=== PATIENT | male | born 1925 | race Caucasian/White ===

== ENCOUNTER 2016-06-07 21:24 | Inpatient (IN) | payer MEDICARE, BC ==
--- NOTE | 2016-06-07 21:39 | EDM.PDOC ---
ED HPI GENERAL MEDICAL PROBLEM - General Chief Complaint: General Stated Complaint: RETAINING FLUID, TROUBLE BREATHING Time Seen by Provider: 06/07/16 21:34 Source of Information: Reports: Patient History Limitations: Reports: No limitations - History of Present Illness INITIAL COMMENTS - FREE TEXT/NARRATIVE: c/o unknown time period of leg swelling hard to breath. - Related Data Allergies Allergy/AdvReac Type Severity Reaction Status Date / Time No Known Allergies Allergy Verified 06/07/16 21:32 Home Meds: Home Meds Aspirin 81 mg PO DAILY 01/11/16 [History] Cyanocobalamin (Vitamin B-12) [Vitamin B-12] 100 mcg PO DAILY 01/11/16 [History] Digoxin 125 mcg PO DAILY 01/11/16 [History] Furosemide [Lasix] 40 mg PO DAILY 01/11/16 [History] Insulin Aspart [NovoLOG] 26 unit SQ TID 01/11/16 [History] Insulin Glarg,Human.Rec.Analog [LantUS Solostar] 75 unit SUBCUT BEDTIME [History] Isosorbide Mononitrate [Imdur] 30 mg PO DAILY 01/11/16 [History] Metolazone 2.5 mg PO ASDIRECTED 01/11/16 [History] Metoprolol Succinate [Toprol XL] 50 mg PO BID 01/11/16 [History] Potassium Chloride [Klor-Con M20] 20 meq PO BID 01/11/16 [History] Spironolactone [Aldactone] 25 mg PO DAILY 01/11/16 [History] Warfarin Sodium [Jantoven] 2.5 mg PO DAILY 01/11/16 [History] Past Medical History HEENT History: Reports: Hard of hearing, Impaired vision Other HEENT History: wears glasses and uses hearing aides Cardiovascular History: Reports: Afib, CAD, Heart Failure, Hypertension, Stents Other Cardiovascular History: family states ECHO "was not real good" 9 to 10 years ago when done when stents were placed. Respiratory History: Reports: SOB Gastrointestinal History: Reports: Chronic constipation Genitourinary History: Reports: Prostate disorder, Other (see below) Other Genitourinary History: Had surgery on prostrate but doesn't know exactly what was done. States has trouble going sometimes or not empting and then having to go right away. States sometimes it goes good. Musculoskeletal History: Reports: Other (see below) Other Musculoskeletal History: peripheral artery disease Endocrine/Metabolic History: Reports: Diabetes, type II - Past Surgical History Cardiovascular Surgical History: Reports: Coronary artery stent GI Surgical History: Reports: Appendectomy, Cholecystectomy Social & Family History - Tobacco Use Smoking Status *Q: Former Smoker ED ROS GENERAL - Review of Systems Review Of Systems: ROS reveals no pertinent complaints other than HPI. ED EXAM, GENERAL - Physical Exam Exam: See Below Exam Limited By: No limitations General Appearance: alert, WD/WN Ears: hearing grossly normal Throat/Mouth: Normal voice, No airway compromise Head: atraumatic Neck: non-tender, full range of motion Respiratory/Chest: no respiratory distress, no accessory muscle use, rhonchi. No: decreased breath sounds, retractions, splinting Cardiovascular: regular rate, rhythm GI/Abdominal: soft, non tender Extremities: pedal edema. No: other (3-4+ bilaterally) Neurological: alert, oriented, normal cognition, normal gait, no motor/sensory deficits Psychiatric: normal affect, normal mood Skin Exam: Warm, Dry Lymphatic: no adenopathy Course - Vital Signs Last Recorded V/S: Last Vital Signs Temp 35.9 C 06/07/16 21:32 Pulse 65 06/07/16 23:30 Resp 18 06/07/16 23:30 BP 103/60 06/07/16 23:30 Pulse Ox 98 06/07/16 23:30 - Orders/Labs/Meds Labs: Laboratory Tests 06/07/16 06/07/16 06/07/16 Range/Units 21:41 21:41 21:41 WBC 7.7 (5.0-10.0) 10^3/uL RBC 3.22 L (4.6-6.2) 10^6/uL Hgb 10.2 L (14.0-18.0) g/dL Hct 31.9 L (40.0-54.0) % MCV 99.1 (80-100) fL MCH 31.7 (27.0-34.0) pg MCHC 32.0 L (33.0-35.0) g/dL Plt Count 92 L (150-450) 10^3/uL Neut % (Auto) 67.7 (42.2-75.2) % Lymph % (Auto) 19.6 L (20.5-50.1) % [place] % (Auto) 11.2 H (2-8) % Eos % (Auto) 1.2 (1.0-3.0) % Baso % (Auto) 0.3 (0.0-1.0) % PT 18.3 H (9.0-12.0) SEC INR 1.8 H (0.9-1.2) D-Dimer, Quantitative (0-400) ng/mL Sodium 134 L (135-145) mmol/L Potassium 4.2 (3.6-5.0) mmol/L Chloride 94 L (101-111) mmol/L Carbon Dioxide 30.0 (21.0-31.0) mmol/L Anion Gap 14.2 BUN 59 H (7-18) mg/dL Creatinine 2.8 H (0.6-1.3) mg/dL Est Cr Clr Drug Dosing 19.63 mL/min Estimated GFR (MDRD) 21 BUN/Creatinine Ratio 21.07 Glucose 133 H (74-105) mg/dL Calcium 8.2 L (8.4-10.2) mg/dl Total Bilirubin 1.0 (0.2-1.0) mg/dL AST 34 (10-42) IU/L ALT 33 (10-60) IU/L Alkaline Phosphatase 64 (42-121) IU/L Troponin I 0.03 H* (0.00-0.02) ng/ml B-Natriuretic Peptide 219 H (0-100) pg/ml Total Protein 6.8 (6.7-8.2) g/dl Albumin 3.7 (3.2-5.5) g/dl Globulin 3.1 Albumin/Globulin Ratio 1.19 Urine Color (YELLOW) Urine Appearance (CLEAR) Urine pH (5.0-9.0) Ur Specific [place] (1.005-1.030) Urine Protein (NEGATIVE) Urine Glucose (UA) (NEGATIVE) Urine Ketones (NEGATIVE) Urine Occult Blood (NEGATIVE) Urine Nitrite (NEGATIVE) Urine Bilirubin (NEGATIVE) Urine Urobilinogen (0.2-1.0) mg/dL Ur Leukocyte Esterase (NEGATIVE) Urine RBC /HPF Urine WBC (0-5/HPF) /HPF Ur Epithelial Cells /HPF Urine Bacteria (0-FEW/HPF) /HPF Digoxin (0-2.5) ng/ml 06/07/16 06/07/16 06/07/16 Range/Units 21:41 21:41 22:59 WBC (5.0-10.0) 10^3/uL RBC (4.6-6.2) 10^6/uL Hgb (14.0-18.0) g/dL Hct (40.0-54.0) % MCV (80-100) fL MCH (27.0-34.0) pg MCHC (33.0-35.0) g/dL Plt Count (150-450) 10^3/uL Neut % (Auto) (42.2-75.2) % Lymph % (Auto) (20.5-50.1) % [place] % (Auto) (2-8) % Eos % (Auto) (1.0-3.0) % Baso % (Auto) (0.0-1.0) % PT (9.0-12.0) SEC INR (0.9-1.2) D-Dimer, Quantitative < 100 (0-400) ng/mL Sodium (135-145) mmol/L Potassium (3.6-5.0) mmol/L Chloride (101-111) mmol/L Carbon Dioxide (21.0-31.0) mmol/L Anion Gap BUN (7-18) mg/dL Creatinine (0.6-1.3) mg/dL Est Cr Clr Drug Dosing mL/min Estimated GFR (MDRD) BUN/Creatinine Ratio Glucose (74-105) mg/dL Calcium (8.4-10.2) mg/dl Total Bilirubin (0.2-1.0) mg/dL AST (10-42) IU/L ALT (10-60) IU/L Alkaline Phosphatase (42-121) IU/L Troponin I (0.00-0.02) ng/ml B-Natriuretic Peptide (0-100) pg/ml Total Protein (6.7-8.2) g/dl Albumin (3.2-5.5) g/dl Globulin Albumin/Globulin Ratio Urine Color Yellow (YELLOW) Urine Appearance Clear (CLEAR) Urine pH 6.5 (5.0-9.0) Ur Specific [place] 1.015 (1.005-1.030) Urine Protein Negative (NEGATIVE) Urine Glucose (UA) Negative (NEGATIVE) Urine Ketones Negative (NEGATIVE) Urine Occult Blood Negative (NEGATIVE) Urine Nitrite Negative (NEGATIVE) Urine Bilirubin Negative (NEGATIVE) Urine Urobilinogen 0.2 (0.2-1.0) mg/dL Ur Leukocyte Esterase Negative (NEGATIVE) Urine RBC Not seen /HPF Urine WBC Not seen (0-5/HPF) /HPF Ur Epithelial Cells Occasional /HPF Urine Bacteria Rare (0-FEW/HPF) /HPF Digoxin 1.0 (0-2.5) ng/ml - Re-Assessments/Exams Free Text/Narrative Re-Assessment/Exam: 06/07/16 23:[address] Díaz who kindly admitted Pt. Departure - Departure Time of Disposition: 23:58 Disposition: Admitted As Inpatient 68 Condition: good Clinical Impression: CHF, Congestive heart failure Forms: ED Department Discharge
--- NOTE | 2016-06-08 00:13 | PCM.HP ---
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 I have seen this pt in Renal Clinic in April, and I had a long discussion with the patient and his and daughter about dialysis. The patient does not want to have dialysis. He would like to have continued medical management. The the pt came to ED with weakness and increased fluid retention , pt has stopped taking Metolazone beacuse he was urinating too much and was tired of urinating. Onset of Symptoms: Reports: gradual - Related Data Allergies/Adverse Reactions: Allergies Allergy/AdvReac Type Severity Reaction Status Date / Time No Known Allergies Allergy Verified 06/07/16 21:32 Home Medications: Home Meds Aspirin 81 mg PO DAILY 01/11/16 [History] Cyanocobalamin (Vitamin B-12) [Vitamin B-12] 100 mcg PO DAILY 01/11/16 [History] Digoxin 125 mcg PO DAILY 01/11/16 [History] Furosemide [Lasix] 40 mg PO DAILY 01/11/16 [History] Insulin Aspart [NovoLOG] 25 unit SQ TID 01/11/16 [History] Insulin Glarg,Human.Rec.Analog [LantUS Solostar] 75 unit SUBCUT BEDTIME [History] Isosorbide Mononitrate [Imdur] 30 mg PO DAILY 01/11/16 [History] Metolazone 2.5 mg PO Q48H 01/11/16 [History] Metoprolol Succinate [Toprol XL] 50 mg PO BID 01/11/16 [History] Potassium Chloride [Klor-Con M20] 20 meq PO BID 01/11/16 [History] Spironolactone [Aldactone] 25 mg PO DAILY 01/11/16 [History] Warfarin Sodium [Jantoven] 2.5 mg PO DAILY 01/11/16 [History] Warfarin Sodium [Jantoven] 5 mg PO .06/08/16 [History] Past Medical History HEENT History: Reports: Hard of hearing, Impaired vision Other HEENT History: wears glasses and uses hearing aides Cardiovascular History: Reports: Afib, CAD, Heart Failure, Hypertension, Stents Other Cardiovascular History: family states ECHO "was not real good" 9 to 10 years ago when done when stents were placed. Respiratory History: Reports: SOB Gastrointestinal History: Reports: Chronic constipation Genitourinary History: Reports: Prostate disorder, Other (see below) Other Genitourinary History: Had surgery on prostrate but doesn't know exactly what was done. States has trouble going sometimes or not empting and then having to go right away. States sometimes it goes good. Musculoskeletal History: Reports: Other (see below) Other Musculoskeletal History: peripheral artery disease Neurological History: Reports: None Psychiatric History: Reports: None Endocrine/Metabolic History: Reports: Diabetes, type II Hematologic History: Reports: None Immunologic History: Reports: None Oncologic (Cancer) History: Reports: None Dermatologic History: Reports: None - Past Surgical History Cardiovascular Surgical History: Reports: Coronary artery stent GI Surgical History: Reports: Appendectomy, Cholecystectomy Social & Family History - Tobacco Use Smoking Status *Q: Former Smoker Used Tobacco, but Quit: Yes Month Tobacco Last Used: years - Caffeine Use Caffeine Use: Reports: Coffee, Soda - Recreational Drug Use Recreational Drug Use: No H&P Review of Systems - Review of Systems: Review Of Systems: See Below General: Reports: weakness, fatigue, weight gain. Denies: fever, chills HEENT: Denies: headaches, sinus congestion, sore throat Pulmonary: Denies: Shortness of Breath, Wheezing, Cough, Sputum Cardiovascular: Reports: dyspnea on exertion. Denies: chest pain, palpitations Gastrointestinal: Denies: Abdominal pain, Diarrhea, Nausea, Vomiting Genitourinary: Denies: dysuria, burning, urgency, flank pain Musculoskeletal: Reports: leg pain. Denies: neck pain, shoulder pain, back pain Skin: Denies: cyanosis, jaundice, bruising, pruritis, rash Psychiatric: Denies: confusion, anxiety, agitation, hallucinations Neurological: Denies: Confusion, Tingling, Tremors Hematologic/Lymphatic: Reports: no symptoms Immunologic: Reports: no symptoms Exam - Exam Exam: See Below - Vital Signs Vital Signs: Last Vital Signs Temp 35.9 C 06/07/16 21:32 Pulse 65 06/08/16 00:00 Resp 18 06/08/16 00:00 BP 101/60 06/08/16 00:00 Pulse Ox 97 06/08/16 00:00 Weight: 104.326 kg - Exam Quality Assessment: DVT prophylaxis. No: supplemental oxygen, urinary catheter General: alert, oriented, cooperative HEENT: Conjunctiva clear, EOMI, Hearing intact, Mucosa moist & pink Neck: supple. No: lymphadenopathy, thyromegaly Lungs: Clear to auscultation, Normal respiratory effort, Crackles (mild). No: Rales, Rhonchi, Wheezing Cardiovascular: irregular rhythm, systolic murmur Abdomen: normal bowel sounds, soft. No: guarding, rigidity Rectal (Males) Exam: Deferred Back Exam: normal inspection, full range of motion Extremities: normal inspection, normal pulses, edema (+2-3 pitting). No: calf tenderness Skin: warm, dry, intact Neurological: cranial nerves intact Neuro Extensive - Mental Status: alert, oriented x3, normal mood/affect, normal cognition, memory intact Neuro Extensive - Motor, Sensory, Reflexes: CN II-XII intact Psychiatric: alert, normal affect, normal mood - Patient Data Result Diagrams: 06/07/16 21:41 06/08/16 06:30 *Q Meaningful Use (ADM) - VTE *Q VTE Criteria *Q: - Stroke *Q Stroke Criteria *Q: - AMI *Q AMI Criteria *Q: - Problem List (1) Edema extremities SNOMED Code(s): 184200614 ICD Code: R60.0 - LOCALIZED EDEMA Status: Acute Current Visit: Yes (2) Weight gain Status: Acute Current Visit: Yes (3) Pulmonary hypertension SNOMED Code(s): 40025862 ICD Code: I27.2 - OTHER SECONDARY PULMONARY HYPERTENSION Status: Acute Current Visit: Yes (4) Hypertension SNOMED Code(s): 17191942 ICD Code: I10 - ESSENTIAL (PRIMARY) HYPERTENSION Status: Acute Current Visit: Yes (5) A-fib SNOMED Code(s): 60771777 ICD Code: I48.91 - UNSPECIFIED ATRIAL FIBRILLATION Status: Acute Current Visit: Yes (6) CHF, Congestive heart failure SNOMED Code(s): 26978157 ICD Code: I50.9 - HEART FAILURE, UNSPECIFIED Status: Acute Current Visit : Yes Problem List Initiated/Reviewed/Updated: Yes Assessment/Plan Comment:: This is a 89 Y/O M with chronic atrial fibrillation rate controlled on anticoagulation, coronary artery disease, diabetes type 2 which is insulin- dependent, long-standing with moderately good control, no diabetic retinopathy, dyslipidemia, hypertension, peripheral vascular disease, significant lower extremity emeda with chronic Lymphedema wrap chronic kidney disease stage IV, baseline creatinine ranging from 2.2 to 2.6 mg/dL. I had a long discussion with the patient and his and daughter in renal clinic visit on 04/2016 about dialysis and the patient does not want to have dialysis. Today he was admitted with fluid retention weight gain of 16-18 lbs as he has stopped taking Metolazone because he was urinating too many times and also has LE pain 1. Increased swelling of Lower extremity: This is likely from not taking Metolazone and possibly deterioration of Pulmonary Hyprertension -Will start him lasix 40 mg IV X q 6 hrs -Will hold home medication ( Furosemide 40 mg daily, Aldactone 25 mg daily ) and will continue Metolazone 2.5 mg daily ( give 30-40 minutes before the Furosemide dose) -Will place a Tee Catheter for I/O recording and pt comfort -Will check daily weight 2. Weakness with LE pain: This is likely from increasing girth of the Extremity with fluid retention -Will continue IV lasix and continue diuresis as BP tolerates 3. Hypertension: His BP was on the low side He was at home on Toporol XL at 100 mg daily, Imdur at 30 mg daily and aldactone at 25 mg daily -Will decrease Metoprolol to 50 mg daily and hold Imdur [ was at 30 mg daily] and continue aldactone at 25 mg daily 4. Diadetes 2 ( Insulin Dependent): he was at home on lantus 75 units at bed time and NovoLog 25 sq TID before meals 5. A-Fib: on Digoxin 125 mcg daily and will continue 6. CKD stage IV: This is likely from Hypertension and diabetes, base line 2.2- 2.8 mg/dl and the pt as well as family do not want him to have dialysis -Continue Medical Management 7. Pulmonary Hypertension: Pt had Echo in 2015 and that showed Right Ventricular Systolic Pressure 60-70 mmHg and likely it must have gotten worse now and he is pre-load dependent, it will be difficult to diurese this pt, but will be gentle on diuresis and need continued use of Lymphedema wrap. 8. DVT prophylexis: will continue Heparin 5000 units TID and robles hose 9. GI prophylaxis: Continue Protonix 40 mg daily 10. Code Status: Pt is DNR/DNI Addendum: Pt was seen again at 9 AM and now on IV lasix 40 mg IV TID and responding very well. He now has Tee catheter in place and feels comfortable. He is doing much better and made changes to his Hypertensive Medication. I have stopped Imdur and decreased Metoprolol to 25 mg daily [ was at 50 mg BID] I discussed with Family members, and Grand Son about the plan and I will see him in clinic for further adjustment of his Medication with labs
[2016-06-08] MEDS ORDERED: Acetaminophen 325 MG Tab PO PRN (00:50)
[2016-06-08] MEDS ORDERED: Docusate Sodium 100 MG Cap PO PRN (00:50)
[2016-06-08] MEDS ORDERED: Metolazone 2.5 MG Tab PO SCH (06:00)
[2016-06-08] MEDS: Pantoprazole 40 MG Tab.CR PO SCH (06:21)
[2016-06-08] MEDS ORDERED: Furosemide 40 MG/4 ML VIAL IVPUSH SCH (07:00)
[2016-06-08] MEDS ORDERED: Warfarin 5 MG Tab PO SCH (09:00)
[2016-06-08] MEDS ORDERED: Metoprolol Succinate 50 MG Tab.ER PO SCH (09:00)
[2016-06-08] MEDS ORDERED: Isosorbide Mononitrate 30 MG Tab.ER PO SCH (09:00)
[2016-06-08] MEDS: Insulin Aspart 100 Units/ML 3 ML Pen SUBCUT SCH ×3 (09:32→17:22)
[2016-06-08] MEDS: Potassium Chloride 10 MEQ Tab.ER PO SCH ×2 (09:34→20:43)
[2016-06-08] MEDS: Digoxin 125 MCG Tab PO SCH (09:35)
[2016-06-08] MEDS: Spironolactone 25 MG Tab PO SCH (09:35)
[2016-06-08] MEDS: Aspirin 81 MG Tab.EC PO SCH (09:35)
[2016-06-08] MEDS: Furosemide 40 MG/4 ML VIAL IVPUSH SCH ×3 (12:58→23:33)
[2016-06-08] MEDS ORDERED: Warfarin 2.5 MG Tab PO ONE (14:00)
[2016-06-08] MEDS ORDERED: Warfarin 2.5 MG Tab PO SCH (14:00)
[2016-06-08] MEDS ORDERED: Insulin Detemir 100 Units/ML 3 ML Pen SUBCUT SCH (21:00)
[2016-06-09] MEDS ORDERED: Nitroglycerin 0.4 MG Tab.SL SL ONE (01:35)
[2016-06-09] MEDS ORDERED: Aspirin 81 MG Tab.Chew PO ONE (02:00)
--- NOTE | 2016-06-09 02:02 | PCM.SN ---
- Free Text/Narrative Note: I got paged by nursing station , Pt complained of Chest pain left sided and graded as 7/10, constant and Non radiating, it is reproducible with palpation. Given NTG 0.4 mg X 1 dose , Got EKG and it showed afib with Ventricular rate of 68 bPM and RBBB with No ST-T changes. Will get Tropinin-I, BMP -Will give ASA 81 mg X 1 dose Vitals: BP 116/60, General: alert, oriented, talking well, not in acute distress, CV: Irregular rate, with Murmur Ext: No numbness or Tingling of any extremities Labs: Troponin was 0.04 ( 06/09/16 and on admission it was 0.03 Chemistry: Potassium 3.8, Sodium 136 and creatinine 2.4 Plan: 1. Chest Pain: Likely Costochondral ( Reproducible with Palpation) -Given NTG 0.4 mg X 1 dose, ASA 81 mg and got EKG -Will get another set of Trop at 8:00 AM, Trop at 2:00 AM ( 06/09/16) was 0.04 -If things change then will plan for transfer to [facility] - I checked him again at 6:00 AM and has no more chest Pain
[2016-06-09] MEDS ORDERED: Metolazone 2.5 MG Tab PO SCH (05:00)
[2016-06-09] MEDS: Furosemide 40 MG/4 ML VIAL IVPUSH SCH ×2 (05:09→12:46)
[2016-06-09] MEDS: Pantoprazole 40 MG Tab.CR PO SCH (05:12)
[2016-06-09] MEDS ORDERED: Sodium Chloride 0.9% 10 ML Syringe FLUSH PRN (05:19)
[2016-06-09] MEDS: Insulin Aspart 100 Units/ML 3 ML Pen SUBCUT SCH ×2 (08:44→12:45)
[2016-06-09] MEDS: Digoxin 125 MCG Tab PO SCH (08:50)
[2016-06-09] MEDS: Aspirin 81 MG Tab.EC PO SCH (08:53)
[2016-06-09] MEDS: Potassium Chloride 10 MEQ Tab.ER PO SCH (10:01)
[2016-06-09] MEDS: Metoprolol Succinate 25 MG Tab.ER PO SCH ×3 (10:06→12:58)
[2016-06-09] MEDS: Spironolactone 25 MG Tab PO SCH ×3 (10:06→12:58)
[2016-06-09 13:50] VITALS: BP 122/50
[2016-06-09] MEDS ORDERED: Warfarin 5 MG Tab PO ONE (14:00)
--- NOTE | 2016-06-12 04:14 | DISCH ---
FINAL DIAGNOSES: 1. Increased lower extremity swelling secondary to noncompliance. 2. Hypertension. 3. Diabetes. 4. Atrial fibrillation. 5. Chronic kidney disease, stage 4. 6. Pulmonary hypertension. BRIEF HISTORY AND PHYSICAL EXAMINATION: The patient is an 89-year-old male with past medical history of atrial fibrillation, on anticoagulation, history of coronary artery disease, insulin-dependent diabetes, peripheral vascular disease, chronic lower extremity swelling and CKD and also pulmonary hypertension, was admitted because of increasing weakness and fluid retention. Apparently, patient has stopped taking the metolazone because of urinary frequency and is getting tired of this. On admission, blood pressure 101/60, heart rate of 65 beats per minute, respirations 18 breaths per minute, oxygen saturation 98% and temperature 35.9. Documented physical exam showed mild crackles, no increase in respiratory effort. Irregular heart rhythm. Edema 2-3 pitting, otherwise awake and oriented. LABORATORY DATA: Workup done in the hospital admitting CBC; showed a WBC 7.7, hemoglobin 10.2, platelets 92, INR 1.8. Initial troponin 0.03. Sodium 134, creatinine 2.8, BN peptide 219. Urinalysis unremarkable. Digoxin level of 1.0. The discharge BMP showed sodium 136, creatinine 2.4, repeat troponin 0.04 x2 sets, and the INR is 1.9. Chest x-ray showed cardiomegaly without focal opacity and is read as a stable exam. HOSPITAL COURSE: The patient was admitted in the medical-surgical bed. He was given Lasix 40 mg every 6 hours, furosemide p.o. and Aldactone was on hold, but his metolazone 2.5 mg was continued. Tee catheter inserted for close I's and O's according and weight was recorded. The weakness on the lower extremity and pain is attributed to the swelling. As for his hypertension, it was on the low side. The metoprolol was decreased to 50 mg and Imdur was on hold. For his diabetes, his insulin was continued. Atrial fibrillation, his digoxin was continued. Digoxin level was checked. As for his CKD, it has been at its baseline. The patient had an episode in which, he complained of chest pain. Troponin was checked, it was 0.04. When EKG checked, no changes. He was given a dose of nitro. Hours later on the day of discharge, the patient felt significantly better. No recurrence of chest pain. No shortness of breath and noticed improvement of the lower extremity swelling as well. Discussion was made regarding Tee catheter use, which includes, but not limited to, risk for getting infection. Patient is acceptable with doing the Tee catheter and aware that home health will be going to his house for education. PHYSICAL EXAMINATION: Vital Signs: On discharge; blood pressure 122/50, heart rate of 74 beats per minute, respirations 20 breaths per minute, oxygen saturation 99%. General Appearance: Awake, in distress. Chest: Symmetric chest expansion. Lungs: Bilateral air entry. CVS: Irregular rate and rhythm. Abdomen: Soft, normoactive bowel sounds. Extremities: Grade 1-2 pitting edema. DISCHARGE INSTRUCTIONS: The patient is stable to be discharged home with home health. The patient advised to check blood pressure regularly at home and to check weights at home and to double check that we made changes on his medication. He has appointment setup with oil field laborer on and is also advised to follow up with provider within 1 week from discharge. The patient is stable to be discharged home. [facility] /[id number]
--- NOTE | 2016-07-01 13:14 | EKG ---
06/09/2016- RAUDEL CAMARILLO D - EKG done on an 89-year-old male showing atrial fibrillation with heart rate of 68 beats per minute, right bundle-branch block, no acute ST-T wave changes. [facility] /[id number]
== END 2016-06-09 13:40 | disposition home or self-care (01) | DRG 292 ==
LOC: DL.ED 21:24 → DL.MS 06-08 → UNDOADMIN 06-08 → DL.MS 06-08 00:51
PROVIDERS: ADMIT Internal Medicine Nephrology; ATTEND Internal Medicine Nephrology
DX: I13.0 Hypertensive heart and chronic kidney disease with heart failure and stage 1 through stage 4 chronic kidney disease, or unspecified chronic kidney disease (principal); N18.4 Chronic kidney disease, stage 4 (severe); I50.9 Heart failure, unspecified; I48.2 Chronic atrial fibrillation; Z79.01 Long term (current) use of anticoagulants; I25.10 Atherosclerotic heart disease of native coronary artery without angina pectoris; Z79.4 Long term (current) use of insulin; I27.2 Other secondary pulmonary hypertension; E78.5 Hyperlipidemia, unspecified; E11.51 Type 2 diabetes mellitus with diabetic peripheral angiopathy without gangrene; I89.0 Lymphedema, not elsewhere classified; Z87.891 Personal history of nicotine dependence; Z66 Do not resuscitate
CPT/HCPCS: 36415; 51702; 71010; 80048; 80053; 80162; 81001; 82962; 83880; 84484; 85025; 85379; 85610; 93005; 93010; 99283; 99285; A9270-GY; J1815-GY; J1940

== ENCOUNTER 2016-10-08 15:47 | Emergency (ER) | payer MEDICARE, BC ==
[2016-10-08] MEDS ORDERED: Sodium Chloride 0.9% 10 ML Syringe FLUSH PRN (16:13)
[2016-10-08] MEDS ORDERED: Sodium Chloride 0.9% 1,000 ML IV ONE (16:14)
--- NOTE | 2016-10-08 16:18 | EDM.PDOC ---
ED HPI GENERAL MEDICAL PROBLEM - General Chief Complaint: Diabetic Complaint Stated Complaint: BLOOD SUGAR HIGH Time Seen by Provider: 10/08/16 16:15 Source of Information: Reports: Patient, Family History Limitations: Reports: No Limitations - History of Present Illness INITIAL COMMENTS - FREE TEXT/NARRATIVE: 89 yo male presents with two days of "not feeling well". States that he has not had fever, states that he has had decreased urinary output and is on " water pills 3xday". No other complaints Onset Date: 10/06/16 Duration: Getting Worse Location: Reports: Generalized Associated Symptoms: Reports: Malaise, Weakness - Related Data Allergies Allergy/AdvReac Type Severity Reaction Status Date / Time No Known Allergies Allergy Verified 06/07/16 21:32 Home Meds: Home Meds Aspirin 81 mg PO DAILY 01/11/16 [History] Cyanocobalamin (Vitamin B-12) [Vitamin B-12] 100 mcg PO DAILY 01/11/16 [History] Digoxin 125 mcg PO DAILY 01/11/16 [History] Furosemide [Lasix] 20 mg PO DAILY 01/11/16 [History] Insulin Aspart [NovoLOG] 25 unit SQ TID 01/11/16 [History] Insulin Glarg,Human.Rec.Analog [Lantus Solostar] 75 unit SUBCUT BEDTIME [History] Metolazone 2.5 mg PO Q48H 01/11/16 [History] Potassium Chloride [Klor-Con M20] 20 meq PO BID 01/11/16 [History] Spironolactone [Aldactone] 25 mg PO DAILY 01/11/16 [History] Warfarin Sodium [Jantoven] 2.5 mg PO DAILY 01/11/16 [History] Warfarin Sodium [Jantoven] 5 mg PO .TU 06/08/16 [History] Metoprolol Tartrate 25 mg PO ASDIRECTED 10/08/16 [History] Past Medical History HEENT History: Reports: Hard of Hearing, Impaired Vision Other HEENT History: wears glasses and uses hearing aides Cardiovascular History: Reports: Afib, CAD, Heart Failure, Hypertension, Stents Other Cardiovascular History: family states ECHO "was not real good" 9 to 10 years ago when done when stents were placed. Respiratory History: Reports: SOB Gastrointestinal History: Reports: Chronic Constipation Genitourinary History: Reports: Prostate Disorder, Other (See Below) Other Genitourinary History: Had surgery on prostrate but doesn't know exactly what was done. States has trouble going sometimes or not empting and then having to go right away. States sometimes it goes good. Musculoskeletal History: Reports: Other (See Below) Other Musculoskeletal History: peripheral artery disease Neurological History: Reports: None Psychiatric History: Reports: None Endocrine/Metabolic History: Reports: Diabetes, Type II Hematologic History: Reports: None Immunologic History: Reports: None Oncologic (Cancer) History: Reports: None Dermatologic History: Reports: None - Past Surgical History Cardiovascular Surgical History: Reports: Coronary Artery Stent Male Surgical History: Reports: TURP-Transurethral Resection of Prostate Social & Family History - Family History Family Medical History: Noncontributory - Tobacco Use Smoking Status *Q: Former Smoker Used Tobacco, but Quit: Yes Month Tobacco Last Used: years - Caffeine Use Caffeine Use: Reports: Coffee, Soda - Recreational Drug Use Recreational Drug Use: No ED ROS GENERAL - Review of Systems Review Of Systems: ROS reveals no pertinent complaints other than HPI. ED EXAM GENERAL NO PERIP PULSE - Physical Exam Exam: See Below Exam Limited By: No Limitations General Appearance: Alert, WD/WN, No Apparent Distress Eye Exam: Bilateral Eye: PERRL Head: Atraumatic, Normocephalic Neck: Normal Inspection, Supple, Non-Tender, Full Range of Motion Respiratory/Chest: No Respiratory Distress, Normal Breath Sounds, No Accessory Muscle Use, Chest Non-Tender, Rales (generalized lungs bilateral lower lobes) Cardiovascular: Normal Peripheral Pulses, Regular Rate, Rhythm, No Edema, No Gallop, No JVD, No Murmur, No Rub GI/Abdominal: Normal Bowel Sounds, Soft, Non-Tender, No Organomegaly, No Distention, No Abnormal Bruit, No Mass (Male) Exam: Normal Inspection Neurological: Alert, Oriented, CN II-XII Intact, Normal Cognition, No Motor/ Sensory Deficits Skin Exam: Warm, Dry, Intact Course - Vital Signs Last Recorded V/S: Last Vital Signs Temp 97.8 F 10/08/16 18:49 Pulse 74 10/08/16 18:49 Resp 18 10/08/16 18:49 BP 127/58 L 10/08/16 18:49 Pulse Ox 99 10/08/16 18:49 - Orders/Labs/Meds Orders: Active Orders 24 hr Category Date Time Status Tee Catheter Insertion [Insert Urinary Catheter] [OM. Care 10/08/16 19:00 Ordered PC] Q24H Urinary Catheter Assessment [RC] ASDIRECTED Care 10/08/16 18:58 Ordered CULTURE URINE [RM] Stat Lab 10/08/16 16:33 Received Sodium Chloride 0.9% [Saline Flush] Med 10/08/16 16:13 Active 10 ml FLUSH ASDIRECTED PRN Saline Lock Insert [OM.PC] Stat Oth 10/08/16 16:12 Ordered Medication Orders Sodium Chloride (Saline Flush) 10 ml FLUSH ASDIRECTED PRN PRN Reason: Keep Vein Open Last Admin: 10/08/16 16:30 Dose: 10 ml Labs: Laboratory Tests 10/08/16 10/08/16 10/08/16 Range/Units 16:30 16:30 16:33 WBC 6.7 (5.0-10.0) 10^3/uL RBC 3.74 L (4.6-6.2) 10^6/uL Hgb 12.1 L (14.0-18.0) g/dL Hct 35.4 L (40.0-54.0) % MCV 94.7 (80-100) fL MCH 32.4 (27.0-34.0) pg MCHC 34.2 (33.0-35.0) g/dL Plt Count 143 L (150-450) 10^3/uL Neut % (Auto) 62.8 (42.2-75.2) % Lymph % (Auto) 25.1 (20.5-50.1) % [place] % (Auto) 10.6 H (2-8) % Eos % (Auto) 1.2 (1.0-3.0) % Baso % (Auto) 0.3 (0.0-1.0) % Sodium 130 L (135-145) mmol/L Potassium 5.0 (3.6-5.0) mmol/L Chloride 87 L (101-111) mmol/L Carbon Dioxide 29.0 (21.0-31.0) mmol/L Anion Gap 19.0 BUN 53 H (7-18) mg/dL Creatinine 2.4 H (0.6-1.3) mg/dL Est Cr Clr Drug Dosing 22.90 mL/min Estimated GFR (MDRD) 26 Glucose 363 H (74-105) mg/dL Calcium 10.1 (8.4-10.2) mg/dl Urine Color Yellow (YELLOW) Urine Appearance Cloudy (CLEAR) Urine pH 7.0 (5.0-9.0) Ur Specific [place] 1.015 (1.005-1.030) Urine Protein Negative (NEGATIVE) Urine Glucose (UA) 250 H (NEGATIVE) Urine Ketones Negative (NEGATIVE) Urine Occult Blood Large H (NEGATIVE) Urine Nitrite Negative (NEGATIVE) Urine Bilirubin Negative (NEGATIVE) Urine Urobilinogen 0.2 (0.2-1.0) mg/dL Ur Leukocyte Esterase Large H (NEGATIVE) Urine RBC 20-30 H /HPF Urine WBC 50-75 H (0-5/HPF) /HPF Ur Epithelial Cells Occasional /HPF Urine Bacteria Moderate H (0-FEW/HPF) /HPF Meds: Medications Generic Name Dose Route Start Last Admin Trade Name Freq PRN Reason Stop Dose Admin Sodium Chloride 10 ml 10/08/16 16:13 10/08/16 16:30 Saline Flush FLUSH 10 ml ASDIRECTED PRN Administration Keep Vein Open Discontinued Medications Generic Name Dose Route Start Last Admin Trade Name Freq PRN Reason Stop Dose Admin Sodium Chloride 1,000 mls @ 999 mls/hr 10/08/16 16:14 10/08/16 16:39 Normal Saline IV 10/08/16 17:14 999 mls/hr .BOLUS ONE Administration Ciprofloxacin/Dextrose 400 mg/ 200 mls @ 200 mls/hr 10/08/16 17:00 10/08/16 17:20 Premix IV 10/08/16 17:59 200 mls/hr ONETIME ONE Administration Insulin Human Regular 5 unit 10/08/16 17:44 10/08/16 17:50 Humulin R SUBCUT 10/08/16 17:45 5 units ONETIME ONE Administration Protocol Departure - Departure Time of Disposition: 18:48 Disposition: Home, Self-Care 01 Condition: Good Clinical Impression: UTI (urinary tract infection) Qualifiers: Urinary tract infection type: catheter-associated UTI Indwelling urinary catheter type: indwelling urethral catheter Encounter type: initial encounter Qualified Code(s): T83.511A - Infection and inflammatory reaction due to indwelling urethral catheter, initial encounter - Discharge Information Forms: ED Department Discharge Additional Instructions: [place] up with your PCP in 1 week. Return for worsening symptoms. - My Orders Last 24 Hours: My Active Orders 10/08/16 16:12 Saline Lock Insert [OM.PC] Stat 10/08/16 16:13 Sodium Chloride 0.9% [Saline Flush] 10 ml FLUSH ASDIRECTED PRN 10/08/16 16:33 CULTURE URINE [RM] Stat 10/08/16 18:58 Urinary Catheter Assessment [RC] ASDIRECTED 10/08/16 19:00 Tee Catheter Insertion [Insert Urinary Catheter] [OM.PC] Q24H - Assessment/Plan Last 24 Hours: My Active Orders 10/08/16 16:12 Saline Lock Insert [OM.PC] Stat 10/08/16 16:13 Sodium Chloride 0.9% [Saline Flush] 10 ml FLUSH ASDIRECTED PRN 10/08/16 16:33 CULTURE URINE [RM] Stat 10/08/16 18:58 Urinary Catheter Assessment [RC] ASDIRECTED 10/08/16 19:00 Tee Catheter Insertion [Insert Urinary Catheter] [OM.PC] Q24H
[2016-10-08] MEDS ORDERED: Ciprofloxacin in D5W 400 MG in Premix Bag 1 BAG IV ONE ×2 (17:00)
[2016-10-08] MEDS ORDERED: Insulin Regular, Human 100 Units/ML 3 ML Vial SUBCUT ONE (17:44)
[2016-10-08 18:50] VITALS: BP 127/58
== END 2016-10-08 19:42 | disposition home or self-care (01) ==
LOC: DL.ED 15:47
DX: T83.511A Infection and inflammatory reaction due to indwelling urethral catheter, initial encounter (principal); H54.7 Unspecified visual loss; I11.0 Hypertensive heart disease with heart failure; I25.10 Atherosclerotic heart disease of native coronary artery without angina pectoris; I50.9 Heart failure, unspecified; Z95.5 Presence of coronary angioplasty implant and graft; I48.91 Unspecified atrial fibrillation; E11.9 Type 2 diabetes mellitus without complications; Z79.82 Long term (current) use of aspirin; Z79.899 Other long term (current) drug therapy; Z79.4 Long term (current) use of insulin; Z79.01 Long term (current) use of anticoagulants; Z87.891 Personal history of nicotine dependence; Z98.890 Other specified postprocedural states
CPT/HCPCS: 36415; 51702; 71010; 80048; 81001; 82962; 85025; 87086; 87088; 87186; 87804; 96361; 96365; 96372; 99284; J0744; J1815; J7030; J7050